=== PATIENT | male | born 1975 | race Caucasian/White ===

== ENCOUNTER 2024-09-08 10:06 | Emergency (ER) | payer SELFPAY ==
[~2024-09-08] VITALS: Ht 172.7 cm; Wt 63.0 kg
[2024-09-08 10:08] VITALS: O2SAT 100
[2024-09-08 10:35] VITALS: BP 162/88; PULSE 63; RESP 16; TEMP 37.1; O2SAT 100
[2024-09-08] MEDS ORDERED: IBUP-2028 MT (12:39)
== END 2024-09-08 13:07 | disposition home or self-care (01) ==
LOC: EDBD 10:06 → ER 10:06
DX: M25.522 Pain in left elbow (principal); Z98.890 Other specified postprocedural states
CPT/HCPCS: 73080; 99283